=== PATIENT | male | born 1965 | race Caucasian/White ===

== ENCOUNTER 2019-01-16 07:12 | Day surgery (SDC) | payer OTHER ==
[2019-01-13 15:41] LABS: Absolute Lymphocytes (CBC) 1.7 K/uL (0.7-4.9); Absolute Monocytes 0.3 K/uL (0.1-1.3); Absolute Neutrophil 2.8 K/uL (1.8-8.0); Basophils % 1.5 % (0-1.3); Eosinophils % 2.8 % (0-4.4); Lymphocytes % 33.8 % (15.3-44.8); Monocytes % 6.2 % (3.3-12.3); RBC Red Blood Cell Count 5.03 M/uL (4.33-5.43)
[2019-01-13 16:01] LABS: Albumin 3.9 g/dL (3.4-5.0); Bilirubin Total 0.4 mg/dL (0.2-1.0); Potassium 4.1 mmol/L (3.5-5.1); Protein, Total 8.3 g/dL (6.4-8.2)
--- NOTE | 2019-01-13 16:21 | RAD REPORT ---
EXAM DESCRIPTION: Sarah Porter (2 Views)01/13/2019 3:50 pm CLINICAL HISTORY: Preop COMPARISON: 2013 FINDINGS: The lungs appear clear of acute infiltrate. The heart is normal size IMPRESSION: No acute abnormalities displayed
[2019-01-13 19:49] LABS: Platelet Estimate ADEQ; Urine White Blood Cell Casts OK
[2019-01-13 19:50] LABS: Anisocytosis 1+; Blood Morphology Comment NOT SEEN (NOT SEEN); Ovalocytes 2+; Poikilocytosis 2+; Polychromasia 1+
[2019-01-16] MEDS ORDERED: CEFAZOLIN/SWI 1gm 0 GM/0 ML SYR ONE (07:41)
[2019-01-16] MEDS ORDERED: NA CHLORIDE 0.9% 1,000 ML ONE (07:41)
[2019-01-16] MEDS ORDERED: PROPOFOL 200 MG/20 ML VIAL IV ONE ×2 (08:03→08:25)
[2019-01-16] MEDS ORDERED: LIDOCAINE 2% MPF 5 ML VIAL ONE ×2 (08:04→08:25)
--- NOTE | 2019-01-16 08:15 | EKG ---
Test Date: 2019-01-16 Test Time: 07:31:34 Image Assembler: ALLEN MEASUREMENT RESULTS: Intervals: Rate: 65 [place]: 174 QRSD: 78 QT: 408 QTc: 424 [place]: P: 49 [place]: 174 QRS: 31 T: 26 INTERPRETIVE STATEMENTS: Normal sinus rhythm Normal ECG Compared to ECG 01/02/2013 14:56:10 Sinus arrhythmia no longer present Electronically Signed On 01-16-19 08:14:17 CDT by Tanner Barrett
[2019-01-16] MEDS ORDERED: FENTANYL CITR 100 MCG/2 ML ONE (08:25)
[2019-01-16] MEDS ORDERED: MIDAZOLAM HCL 2 MG/2 ML INJ ONE (08:25)
[2019-01-16] MEDS ORDERED: BUPIVACAINE 0.5% PF 10 ML VIAL ONE (08:34)
[2019-01-16] MEDS ORDERED: CEFAZOLIN/SWI 1gm 1 GM/10 ML SYR ONE (08:47)
[2019-01-16] MEDS ORDERED: ONDANSETRON 4 MG/2 ML VIAL ONE (08:50)
--- NOTE | 2019-01-16 09:28 | P.BOP ---
Preoperative diagnosis: morbid obesity, Prolapsed internal/external multiple hemorrhoid & bleeding Postoperative diagnosis: plus thrombosed prolapsed external hemorroid Primary procedure: 1. EUA, 2. anoscopy, 3. RIgid proctoscopy Secondary procedure: 4. Posterior lateral hemorrhoidectomy two bundles Estimated blood loss: <20cc Specimen: hemorrhoid Findings: see dicatation Anesthesia: General Complications: None Transferred to: Recovery Room Condition: Good
[2019-01-16] MEDS: HYDROMORPHONE HCL 2 MG/ML inj ONE ×3 (09:47→10:02)
[2019-01-16] MEDS ORDERED: PROMETHAZINE 25 MG/ML VIAL ONE (10:08)
[2019-01-16 10:37] VITALS: O2SAT 98
[2019-01-16] MEDS ORDERED: HYDROCODONE/APAP 7.5/325 MG TAB ONE (10:56)
[2019-01-16 12:21] VITALS: BP 140/76; TEMP 97.6
--- NOTE | 2019-01-16 21:18 | OP ---
Date of Procedure: 01/16/2019 Surgeon: Jt Azevedo MD Preoperative Diagnoses: Prolapsed hemorrhoids, multiple hemorrhoids, morbid obesity, thrombosed hemo rrhoids, perianal pain bright red blood per rectum, bleeding hemorrhoids. Postoperative Diagnoses: Prolapsed hemorrhoids, multiple hemorrhoids, morbid obesity, thrombosed hem orrhoids, perianal pain bright red blood per rectum, bleeding hemorrhoids. Procedures: EUA anoscopy, rigid proctoscopy, hemorrhoidectomy x2 bundles. Anesthesia: General and local anesthetic. Indication: He is a case of a male, who comes to us with multiple hemorrhoids prolapse, internal and external. He has been dealing with them, he is trying to use creams, gels, trying also Sitz Baths, unsuccessful. He recognizes a little bit overweight. He has history of morbid obesity and he was ad vised many times also to try to lose some weight. He has circumferential hemorrhoids prolapsing, als o internal, but there is about 2 areas of bleeding at this moment and one of them has thrombosed on i t which is not coming out. The benefit and risks of examination under anesthesia, anoscopy, proctosc opy and hemorrhoidectomy were fully explained to the patient, which include but are not limited to in fection, bleeding, damage to adjacent structures, anesthesia complication, anal stricture and inconti nence, bowel perforation, recurrence, MD, even . He also understands this may not relieve any s ymptoms. He might need more than one surgical intervention. He understands that we would not be abl e to address all this hemorrhoids at this same time because of the risk mentioned above. He should h elp us with the losing weight and also using special creams and suppositories that we going to give h im when it is time for it. He understands also watching his diet. He signed a consent. Description Of Procedure: The patient was brought to the operating room, placed in supine position. Anesthesia was done without complication. The patient was placed in lateral position with proper pr otection. Perianal area was prepped and draped in usual sterile fashion. Local anesthesia was appli ed. This patient has circumferential hemorrhoids, multiple bundles. We put anoscope and went down t o side. We also put rigid proctoscopy all the way to about 15 cm and noticed internal and external h emorrhoids, but there were 2 that were just causing bleeding, they are friable, they are bleeding jus t by touching at this moment. They are prolapsed, they are large and also a thrombosed partially, no t letting these close properly and basically continuing the bleeding. We address those 2 issues. We addressed that individually, so in each one of them we made a wedge incision of the skin and anoderm , the hemorrhoidal plexus from the sphincter and transect the hemorrhoidal plexus with a Calvo rmonic Scalpel. The same was done with the second procedure, once again we protected the sphincter a t all times. Local anesthesia was applied. We closed the anoderm with 3-0 chromic. At that time we put some Surgicel over the area. No bleeding at this moment. At that moment, I proceeded to remove a scope. The patient tolerated the procedure well. The patient was sent to recovery in stable cond ition. This patient will require other trips to the OR to take care of his hemorrhoids at least when the area is not bleeding anymore and then at least he lose some weight to minimize any of the scarri ng over the area. He was advised the importance of that. RICCO Voice ID: [id number] Report ID: [id number]
--- NOTE | 2019-01-16 21:22 | DS ---
Date of Discharge: 01/16/2019 Diagnoses: 1.Morbid obesity. 2.Bright red blood per rectum. 3.Perianal pain. 4.Prolapsed internal and external hemorrhoids. 5.Bleeding hemorrhoids. 6.Thrombosed hemorrhoids. Procedures: EUA anoscopy, proctoscopy, hemorrhoidectomy x2 bundles. Disposition: Home. Activity: As tolerated. No heavy lifting. Followup: Follow up in my office in 1 week. Call for appointment [phone]. Medications: Include hydrocodone q.4 hours p.r.n. pain, Cipro 500 p.o. q.12. Instructions: Advised the importance of losing weight, importance of diabetes control and avoiding c onstipation. He was advised to use Colace [id number] p.r.n. constipation. Sitz bath 3 times a day and after every bowel movement. RICCO Voice ID: [id number] Report ID: [id number]
== END 2019-01-16 11:58 | disposition home or self-care (01) ==
LOC: OR 07:12
PROVIDERS: ATTEND Surgery
PROC: 06BY3ZC Excision of Hemorrhoidal Plexus, Percutaneous Approach (ICD-10-PCS; principal; 2019-01-16 09:15)
DX: K64.5 Perianal venous thrombosis (principal); K64.8 Other hemorrhoids; K64.4 Residual hemorrhoidal skin tags; E66.01 Morbid (severe) obesity due to excess calories; E11.9 Type 2 diabetes mellitus without complications; E07.9 Disorder of thyroid, unspecified; I10 Essential (primary) hypertension; M10.9 Gout, unspecified; F17.290 Nicotine dependence, other tobacco product, uncomplicated; Z79.82 Long term (current) use of aspirin; Z79.84 Long term (current) use of oral hypoglycemic drugs; Z79.899 Other long term (current) drug therapy
CPT/HCPCS: 36415; 71046; 80053; 82962; 85025; 88304; 93005; J0690; J1170; J2250; J2405; J2550; J2704; J3010; J7030